=== PATIENT | male | born 1950 | race Hispanic/Latino ===

== ENCOUNTER 2022-12-17 20:55 | Inpatient (IN) | payer BC, OTHER, SELFPAY ==
[2022-12-17] MEDS ORDERED: ONDANSETRON 4 MG (ODT) TAB ONE ×2 (21:12→23:25)
--- NOTE | 2022-12-17 21:36 | RAD REPORT ---
EXAM DESCRIPTION: RAD - Chest Single View - 12/17/2022 9:26 pm CLINICAL HISTORY: COUGH Chest pain. COMPARISON: No comparisons FINDINGS: Portable technique limits examination quality. The lungs are grossly clear. The heart is normal in size. No displaced fractures. IMPRESSION: No acute intrathoracic process suspected.
[2022-12-17] MEDS ORDERED: NA CHLORIDE 0.9% 1,000 ML ONE ×2 (21:40→22:56)
[2022-12-17] MEDS ORDERED: ONDANSETRON 4 MG/2 ML VIAL ONE (21:40)
[2022-12-17 22:04] LABS: Urine Blood Trace-lysed (Negative); Urine Glucose 2+ (Negative); Urine Protein 2+ (Negative); Urine Specific Gravity 1.025 (1.005-1.030)
[2022-12-17] MEDS ORDERED: CEFTRIAXONE 1000 MG/VIAL ONE (22:56)
[2022-12-17 22:59] LABS: Absolute Lymphocytes (CBC) 0.8 K/uL (0.7-4.9); Hematocrit 41.1 % (39.6-49.0); Lymphocytes % 5.8 % (15.3-44.8); MCV 89.6 fL (80-100); MPV 8.1 fL (7.6-11.3); RBC Red Blood Cell Count 4.58 M/uL (4.33-5.43)
[2022-12-17 23:21] LABS: Albumin 3.7 g/dL (3.4-5.0); Bilirubin Direct 0.2 mg/dL (0-0.2); Bilirubin Total 0.8 mg/dL (0.2-1.0); Magnesium 1.9 mg/dL (1.6-2.4); Protein, Total 7.5 g/dL (6.4-8.2)
[2022-12-17 23:33] LABS: SARS-COV-2 RT PCR NEGATIVE (NEGATIVE)
--- NOTE | 2022-12-18 00:09 | ER ---
Nurse's Notes [facility] Name: Huseyin Benitez Age: 72 yrs Sex: Male : 1950 Arrival Date: 12/17/2022 Time: 20:55 Bed 15 Private MD: Diagnosis: Type 2 diabetes mellitus with hyperglycemia;Dehydration;Vomiting;Elevated white blood cell count;Weakness;Paroxysmal atrial fibrillation-NEW ONSET Presentation: 12/17 21:12 Chief complaint: Patient states: "I went to the clinic today and they said my sugar was vc1 325 I ran out of my Ozempic 3 days ago and haven't been able to get it. I'm throwing up, got the shakes, and my head hurts.". Coronavirus screen: Vaccine status: Patient reports receiving the 2nd dose of the covid vaccine. Plus boosters; Moderna Client denies travel out of the [place] in the last 14 days. chills, headache, shortness of breath, Client presents with at least one sign or symptom that may indicate coronavirus-19. Standard/surgical mask placed on the client. Provider contacted for isolation considerations. Ebola Screen: Patient negative for fever greater than or equal to 101.5 degrees Fahrenheit, and additional compatible Ebola Virus Disease symptoms Patient denies exposure to infectious person. Patient denies travel to an Ebola-affected area in the 21 days before illness onset. No symptoms or risks identified at this time. Initial Sepsis Screen: Does the patient meet any 2 criteria? No. Patient's initial sepsis screen is negative. Does the patient have a suspected source of infection? No. Patient's initial sepsis screen is negative. Risk Assessment: Do you want to hurt yourself or someone else? Patient reports no desire to harm self or others. Onset of symptoms was December 17, 2022. 21:12 Method Of Arrival: Ambulatory vc1 21:12 Acuity: KANE 3 vc1 Triage Assessment: 21:18 General: Appears in no apparent distress. uncomfortable, ill, Behavior is calm, vc1 cooperative, appropriate for age. Pain: Complains of pain in headache. EENT: No deficits noted. Neuro: Level of Consciousness is awake, alert, obeys commands, Oriented to person, place, time, situation, Appropriate for age Weakness Reports headache weakness. Cardiovascular: No deficits noted. Respiratory: Reports shortness of breath at rest Airway is patent Respiratory effort is even, unlabored, Respiratory pattern is regular, symmetrical, the patient has mild shortness of breath. GI: Abdomen is flat, non-distended, Pt is actively vomiting undigested food, Reports nausea, vomiting. : No deficits noted. No signs and/or symptoms were reported regarding the genitourinary system. Derm: No deficits noted. No signs and/or symptoms reported regarding the dermatologic system. Musculoskeletal: No deficits noted. No signs and/or symptoms reported regarding the musculoskeletal system. Historical: - Allergies: 21:16 No Known Allergies; vc1 - Home Meds: 21:16 Ozempic subcutaneous [Active]; Glipizide Oral [Active]; Metformin Oral [Active]; vc1 - PMHx: 21:16 Diabetes mellitus; Cerebrovascular accident; 10 years ago (2012); vc1 - PSHx: 21:16 None; vc1 - Immunization history:: Client reports receiving the 2nd dose of the Covid vaccine. - Social history:: Smoking status: Patient denies any tobacco usage or history of. Screenin:18 [facility] ED Fall Risk Assessment (Adult) History of falling in the last 3 months, vc1 including since admission No falls in past 3 months (0 pts) Confusion or Disorientation No (0 pts) Intoxicated or Sedated No (0 pts) Impaired Gait No (0 pts) Mobility Assist Device Used No (0 pt) Altered Elimination No (0 pt) Score/Fall Risk Level 0 - 2 = Low Risk Oriented to surroundings, Maintained a safe environment, Educated pt \\T\\ family on fall prevention, incl call for assistance when getting out of bed. Abuse screen: Denies threats or abuse. Nutritional screening: No deficits noted. Tuberculosis screening: No symptoms or risk factors identified. Assessment: 21:33 General: Appears in no apparent distress. uncomfortable, Behavior is calm, cooperative. lg3 Pain: Complains of pain in head. Neuro: No deficits noted. Diaz Agitation-Sedation Scale (RASS): 0 - Alert and Calm Level of Consciousness is awake, alert, obeys commands, Oriented to person, place, time, situation. Cardiovascular: No deficits noted. Denies chest pain, shortness of breath, Capillary refill < 3 seconds Clubbing of nail beds is absent JVD is absent Patient's skin is warm and dry. Respiratory: No deficits noted. Airway is patent Trachea midline Respiratory effort is even, unlabored, Respiratory pattern is regular, symmetrical, Denies shortness of breath. GI: Abdomen is round non-distended, Pt is actively vomiting clear fluid, Reports nausea, vomiting. : No deficits noted. No signs and/or symptoms were reported regarding the genitourinary system. EENT: No deficits noted. No signs and/or symptoms were reported regarding the EENT system. Derm: No deficits noted. No signs and/or symptoms reported regarding the dermatologic system. Skin is intact, is healthy with good turgor, Skin is dry, Skin is normal. Musculoskeletal: No deficits noted. No signs and/or symptoms reported regarding the musculoskeletal system. Circulation, motion, and sensation intact. Range of motion: intact in all extremities. 23:21 General: Appears in no apparent distress. comfortable, Behavior is calm, cooperative. lg3 Pain: Denies pain. Neuro: No deficits noted. Diaz Agitation-Sedation Scale (RASS): 0 - Alert and Calm Level of Consciousness is awake, alert, obeys commands, Oriented to person, place, time, situation. Cardiovascular: Denies chest pain, shortness of breath. Respiratory: No deficits noted. Airway is patent Respiratory effort is even, unlabored, Respiratory pattern is regular, symmetrical. GI: Reports nausea. Derm: No deficits noted. Skin is intact, is healthy with good turgor, Skin is dry, Skin is normal. Musculoskeletal: No deficits noted. Circulation, motion, and sensation intact. Range of motion: intact in all extremities. 12/18 01:42 Reassessment: Patient appears in no apparent distress at this time. No changes from lg3 previously documented assessment. Patient and/or family updated on plan of care and expected duration. Pain level reassessed. Patient is alert, oriented x 3, equal unlabored respirations, skin warm/dry/pink. Patient states feeling better. Vital Signs: 12/17 21:12 BP 182 / 95; Pulse 89; Resp 20; Temp 98; Pulse Ox 100% ; Weight 81.65 kg; Height 5 ft. vc1 6 in. (167.64 cm); Pain 5/10; 23:21 BP 147 / 73; Pulse 89; Resp 18; Pulse Ox 100% on R/A; lg3 12/18 00:32 BP 140 / 81; Pulse 84; Pulse Ox 98% ; lg3 00:59 BP 137 / 81; Pulse 101; Pulse Ox 99% on R/A; lg3 12/17 21:12 Body Mass Index 29.05 (81.65 kg, 167.64 cm) vc1 ED Course: 12/17 20:55 Patient arrived in ED. rg4 21:10 Angelina Andrade, RN is Primary Nurse. lg3 21:12 Rodney Kemp MD is Attending Physician. jose 21:16 Triage completed. vc1 21:18 Arm band placed on right wrist. vc1 21:20 Patient has correct armband on for positive identification. Placed in gown. Bed in low vc1 position. Client placed on continuous cardiac and pulse oximetry monitoring. NIBP monitoring applied. 21:28 XRAY Chest (1 view) In Process Unspecified. EDMS 21:33 Door closed. Noise minimized. Warm blanket given. lg3 22:03 Urine Culture Sent. lg3 22:27 Inserted saline lock: 20 gauge in left EJ, using aseptic technique. Blood collected. lg3 22:42 Lactate w/ 2H reflex if indic. Sent. ha1 22:42 Blood Culture Adult (2) Sent. ha1 22:42 Basic Metabolic Panel Sent. ha1 22:42 CBC with Diff Sent. ha1 22:42 LFT's Sent. ha1 22:42 Magnesium Sent. ha1 22:50 Troponin HS Sent. lg3 22:50 NT PRO-BNP Sent. lg3 22:50 COVID-19/FLU A+B Sent. lg3 12/18 00:06 Ricardo Shipley MD is Hospitalizing Provider. jose 00:51 UDS Sent. lg3 01:41 No provider procedures requiring assistance completed. Patient admitted, IV remains in lg3 place. intact, No redness/swelling at site. Administered Medications: 12/17 21:11 Drug: Ondansetron 4 mg Route: PO; lg3 23:20 Follow up: Response: No adverse reaction; No change in condition lg3 23:20 Drug: NS 0.9% 1000 ml Route: IV; Rate: 1 bolus; Site: left jugular; lg3 12/18 01:42 Follow up: IV Status: Completed infusion; IV Intake: 1000ml 3 12/17 23:20 Drug: Zofran (Ondansetron) 4 mg Route: IVP; Site: left jugular; lg3 12/18 00:53 Follow up: Response: No adverse reaction; Marked relief of symptoms lg3 12/17 23:20 Drug: NS 0.9% 1000 ml Route: IV; Rate: 1 bolus; Site: left jugular; lg3 12/18 01:29 Follow up: Response: No adverse reaction; IV Status: Completed infusion; IV Intake: lg3 1000ml 12/17 23:20 Drug: Rocephin (cefTRIAXone) 1 grams Route: IV; Rate: per protocol; Site: left jugular; lg3 12/18 01:28 Follow up: Response: No adverse reaction; IV Status: Completed infusion; IV Intake: [id number] 00:52 Drug: Lopressor (metoprolol TARTRATE) 50 mg Route: PO; lg3 00:59 Follow up: Response: No adverse reaction lg3 00:52 Drug: Lopressor (metoprolol) 5 mg Route: IVP; Site: left jugular; lg3 00:58 Follow up: Response: No adverse reaction lg3 00:52 Drug: Digoxin 0.5 mg Route: IVP; Site: left jugular; lg3 00:58 Follow up: Response: No adverse reaction lg3 01:28 Drug: Lovenox (enoxaparin) 1 mg/kg Route: Sub-Q; Site: right lower abdomen; lg3 01:29 Follow up: Response: No adverse reaction lg3 01:40 Not Given (Patient Refused): Phenergan (promethazine) 12.5 mg IVP once lg3 Medication: 12/17 21:20 VIS not applicable for this client. vc1 Intake: 12/18 01:28 IV: 10ml; Total: 10ml. lg3 01:29 IV: 1000ml; Total: 1010ml. lg3 01:42 IV: 1000ml; Total: 2010ml. lg3 Outcome: 00:07 Decision to Hospitalize by Provider. jose 01:41 Admitted to Med/surg accompanied by tech, via wheelchair, room 232, Report called to lg3 Mena 01:41 Condition: stable 01:41 Instructed on the need for admit, Demonstrated understanding of instructions. 01:53 Patient left the ED. lg3 Signatures: Dispatcher [employer] EDRodney Massey MD MD cha Garcia, Rubi rg4 Angelina Andrade, CHANDA RN lg3 Cheryl Huffman RN RN vc1 Amanda Jane, RN RN ha1 Corrections: (The following items were deleted from the chart) 12/17 23:21 21:33 General: Appears in no apparent distress. comfortable, Behavior is calm, lg3 cooperative, lg3
--- NOTE | 2022-12-18 00:09 | EDPHYS ---
Physician Documentation [facility] Name: Huseyin Benitez Age: 72 yrs Sex: Male : 1950 Arrival Date: 12/17/2022 Time: 20:55 Bed 15 Private MD: ED Physician Rodney Kemp HPI: 12/17 22:29 This 72 yrs old Male presents to ER via Ambulatory with complaints of High jose Blood Sugar. 22:29 The patient or guardian reports hyperglycemia, that was potentially precipitated by no jose particular event. Onset: The symptoms/episode began/occurred 2 day(s) ago. Associated signs and symptoms: Pertinent positives:. Current symptoms: In the emergency department the patient's symptoms have worsened, moderately. Historical: - Allergies: 21:16 No Known Allergies; vc1 - Home Meds: 21:16 Ozempic subcutaneous [Active]; Glipizide Oral [Active]; Metformin Oral [Active]; vc1 - PMHx: 21:16 Diabetes mellitus; Cerebrovascular accident; 10 years ago (2012); vc1 - PSHx: 21:16 None; vc1 - Immunization history:: Client reports receiving the 2nd dose of the Covid vaccine. - Social history:: Smoking status: Patient denies any tobacco usage or history of. ROS: 22:33 Eyes: Negative for injury, pain, redness, and discharge, ENT: Negative for injury, jose pain, and discharge, Neck: Negative for injury, pain, and swelling, Cardiovascular: Negative for chest pain, palpitations, and edema, Abdomen/GI: Negative for abdominal pain, nausea, vomiting, diarrhea, and constipation, Back: Negative for injury and pain, : Negative for injury, bleeding, discharge, and swelling, MS/Extremity: Negative for injury and deformity, Skin: Negative for injury, rash, and discoloration, Neuro: Negative for headache, weakness, numbness, tingling, and seizure, Psych: Negative for depression, anxiety, suicide ideation, homicidal ideation, and hallucinations, Allergy/Immunology: Negative for hives, rash, and allergies, Hematologic/Lymphatic: Negative for swollen nodes, abnormal bleeding, and unusual bruising. 22:33 Constitutional: Positive for chills, malaise, poor PO intake. 22:33 Abdomen/GI: Positive for nausea and vomiting. 22:33 Neuro: Positive for dizziness, tremor, weakness. Exam: 22:33 Head/Face: Normocephalic, atraumatic. Eyes: Pupils equal round and reactive to light, jose extra-ocular motions intact. Lids and lashes normal. Conjunctiva and sclera are non-icteric and not injected. Cornea within normal limits. Periorbital areas with no swelling, redness, or edema. ENT: Nares patent. No nasal discharge, no septal abnormalities noted. Tympanic membranes are normal and external auditory canals are clear. Oropharynx with no redness, swelling, or masses, exudates, or evidence of obstruction, uvula midline. Mucous membranes moist. Neck: Trachea midline, no thyromegaly or masses palpated, and no cervical lymphadenopathy. Supple, full range of motion without nuchal rigidity, or vertebral point tenderness. No Meningismus. Chest/axilla: Normal chest wall appearance and motion. Nontender with no deformity. No lesions are appreciated. Cardiovascular: Regular rate and rhythm with a normal S1 and S2. No gallops, murmurs, or rubs. Normal PMI, no JVD. No pulse deficits. Respiratory: Lungs have equal breath sounds bilaterally, clear to auscultation and percussion. No rales, rhonchi or wheezes noted. No increased work of breathing, no retractions or nasal flaring. Back: No spinal tenderness. No costovertebral tenderness. Full range of motion. Male : Normal genitalia with no discharge or lesions. Skin: Warm, dry with normal turgor. Normal color with no rashes, no lesions, and no evidence of cellulitis. MS/ Extremity: Pulses equal, no cyanosis. Neurovascular intact. Full, normal range of motion. Neuro: Awake and alert, GCS 15, oriented to person, place, time, and situation. Cranial nerves II-XII grossly intact. Motor strength 5/5 in all extremities. Sensory grossly intact. Cerebellar exam normal. Normal gait. Psych: Awake, alert, with orientation to person, place and time. Behavior, mood, and affect are within normal limits. 22:33 ECG was reviewed by the Attending Physician. 22:33 Abdomen/GI: Inspection: abdomen appears normal, Bowel sounds: normal, Palpation: abdomen is soft and non-tender, in all quadrants, Liver: no appreciated palpable abnormalities, Hernia: not appreciated. Vital Signs: 21:12 BP 182 / 95; Pulse 89; Resp 20; Temp 98; Pulse Ox 100% ; Weight 81.65 kg; Height 5 ft. vc1 6 in. (167.64 cm); Pain 5/10; 23:21 BP 147 / 73; Pulse 89; Resp 18; Pulse Ox 100% on R/A; lg3 12/18 00:32 BP 140 / 81; Pulse 84; Pulse Ox 98% ; lg3 00:59 BP 137 / 81; Pulse 101; Pulse Ox 99% on R/A; lg3 12/17 21:12 Body Mass Index 29.05 (81.65 kg, 167.64 cm) vc1 Procedures: 12/17 23:19 Peripheral line: by aseptic technique a peripheral line was placed in the left external jose jugular vein. MDM: 21:12 Patient medically screened. jose 22:39 Differential diagnosis: DKA. Differential Diagnosis sepsis, flu. Data reviewed: vital jose signs, nurses notes, lab test result(s), EKG, radiologic studies, plain films. Consideration of Admission/Observation Patient was admitted/placed on observation. I considered the following discharge prescriptions or medication management in the emergency department Medications were administered in the Emergency Department. See MAR. Test considered but Not performed: Ultrasound usg abd not done. Care significantly affected by the following chronic conditions: Diabetes, cva. 12/17 21:15 Order name: Basic Metabolic Panel; Complete Time: 23:53 [facility] 12/17 21:15 Order name: CBC with Diff; Complete Time: 23:07 [facility] 12/17 21:15 Order name: LFT's; Complete Time: 23:53 [facility] 12/17 21:15 Order name: Magnesium; Complete Time: 23:53 [facility] 12/17 21:15 Order name: NT PRO-BNP; Complete Time: 23:53 [facility] 12/17 21:15 Order name: Troponin HS; Complete Time: 23:53 [facility] 12/17 21:15 Order name: Urine Culture [facility] 12/17 21:15 Order name: Lipase; Complete Time: 23:53 [facility] 12/17 21:17 Order name: Glucose, Ancillary Testing; Complete Time: 22:12 EDNM 12/17 22:04 Order name: Urine Dipstick-Ancillary; Complete Time: 22:12 EDNM 12/17 22:27 Order name: Blood Culture Adult (2) [facility] 12/17 22:27 Order name: Lactate w/ 2H reflex if indic.; Complete Time: 23:53 [facility] 12/17 22:27 Order name: COVID-19/FLU A+B; Complete Time: 23:53 [facility] 12/18 00:32 Order name: TSH [facility] 12/17 21:15 Order name: XRAY Chest (1 view); Complete Time: 22:12 [facility] 12/17 21:15 Order name: EKG; Complete Time: 21:16 [facility] 12/17 21:15 Order name: Cardiac monitoring; Complete Time: 21:24 [facility] 12/18 00:32 Order name: EKG; Complete Time: 00:32 [facility] 12/18 00:38 Order name: UDS la1 12/18 00:39 Order name: CT Abd/Pelvis - Without Contrast [facility] 12/17 21:15 Order name: EKG - Nurse/Tech; Complete Time: 21:41 [facility] 12/17 21:15 Order name: IV Saline Lock; Complete Time: 22:27 [facility] 12/17 21:15 Order name: Labs collected and sent; Complete Time: 22:42 [facility] 12/17 21:15 Order name: O2 Per Protocol; Complete Time: 21:24 [facility] 12/17 21:15 Order name: O2 Sat Monitoring; Complete Time: 21:24 [facility] 12/17 21:15 Order name: Urine Dipstick-Ancillary (obtain specimen); Complete Time: 22:03 [facility] 12/18 00:32 Order name: EKG - Nurse/Tech; Complete Time: 00:37 [facility] EC:33 Rate is 90 beats/min. Rhythm is regular. QRS [place] is Normal. [place] interval is normal. T jose waves are Normal. Clinical impression: NSR w/ Non-specific ST/T Changes and No evidence of ischemia. Interpreted by me. Reviewed by me. Administered Medications: 21:11 Drug: Ondansetron 4 mg Route: PO; 3 23:20 Follow up: Response: No adverse reaction; No change in condition 3 23:20 Drug: NS 0.9% 1000 ml Route: IV; Rate: 1 bolus; Site: left jugular; 3 12/18 01:42 Follow up: IV Status: Completed infusion; IV Intake: 1000ml [facility] 12/17 23:20 Drug: Zofran (Ondansetron) 4 mg Route: IVP; Site: left jugular; 3 12/18 00:53 Follow up: Response: No adverse reaction; Marked relief of symptoms lg3 12/17 23:20 Drug: NS 0.9% 1000 ml Route: IV; Rate: 1 bolus; Site: left jugular; lg3 12/18 01:29 Follow up: Response: No adverse reaction; IV Status: Completed infusion; IV Intake: lg3 1000ml 12/17 23:20 Drug: Rocephin (cefTRIAXone) 1 grams Route: IV; Rate: per protocol; Site: left jugular; lg3 12/18 01:28 Follow up: Response: No adverse reaction; IV Status: Completed infusion; IV Intake: [id number] 00:52 Drug: Lopressor (metoprolol TARTRATE) 50 mg Route: PO; lg3 00:59 Follow up: Response: No adverse reaction lg3 00:52 Drug: Lopressor (metoprolol) 5 mg Route: IVP; Site: left jugular; lg3 00:58 Follow up: Response: No adverse reaction lg3 00:52 Drug: Digoxin 0.5 mg Route: IVP; Site: left jugular; lg3 00:58 Follow up: Response: No adverse reaction lg3 01:28 Drug: Lovenox (enoxaparin) 1 mg/kg Route: Sub-Q; Site: right lower abdomen; lg3 01:29 Follow up: Response: No adverse reaction lg3 01:40 Not Given (Patient Refused): Phenergan (promethazine) 12.5 mg IVP once lg3 Disposition Summary: 12/18/22 00:07 Hospitalization Ordered Hospitalization Status: Observation jose Provider: Ricardo Shipley cha Location: Telemetry/MedSur (Inpatient) jose Condition: Stable jose Problem: new jose Symptoms: have improved jose Bed/Room Type: Standard jose Room Assignment: 232(12/18/22 00:52) cg Diagnosis - Type 2 diabetes mellitus with hyperglycemia jose - Dehydration jose - Vomiting jose - Elevated white blood cell count jose - Weakness jose - Paroxysmal atrial fibrillation - NEW ONSET jose Forms: - Medication Reconciliation Form jose - SBAR form jose Signatures: Dispatcher [employer] EDRodney Massey MD MD cha Garcia, Cindy, RN RN Angelina Waldron RN RN lg3 Cheryl Huffman RN RN vc1 Corrections: (The following items were deleted from the chart) 00:52 00:07 jose cg
[2022-12-18] MEDS ORDERED: METOPROLOL TAR 50 MG TAB ONE (00:38)
[2022-12-18] MEDS ORDERED: METOPROLOL TARTRATE 5 MG/5 ML INJ IV ONE (00:39)
[2022-12-18] MEDS ORDERED: DIGOXIN 0.25 MG/ML AMP ONE (00:39)
[2022-12-18] MEDS ORDERED: ENOXAPARIN 80 MG/0.8 ML SQ ONE (00:40)
--- NOTE | 2022-12-18 00:49 | P.HP ---
Certification for Inpatient Patient admitted to: Observation With expected LOS: <2 Midnights Patient will require the following post-hospital care: None Practitioner: I am a practitioner with admitting privileges, knowledge of patient current condition, hospital course, and medical plan of care. Services: Services provided to patient in accordance with Admission requirements found in Title 42 Section 412.3 of the Code of Federal Regulations <Robin Alanis Jesi Marcial - Last Filed: 12/18/22 00:45> Patient History Date of Service: 12/18/22 Reason for admission: New onset A. 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 He reports he has been out of his medications for the last 3 days. He was evaluated in the emergency department his labs were significant for mild leukocytosis with white blood cell count of 14.5 high-sensitivity opponent of 88.0 glucose 247 BNP 390 chest x-ray was negative for acute findings initial EKG showed normal sinus rhythm but during his evaluation he developed A. fib RVR with a rate up to 145, no known history of atrial fibrillation, he was given metoprolol, Lovenox in ED. Will admit for further evaluation and management of new onset A. fib with RVR. - Past Medical/Surgical History -: Pij-vxtiquw-byrvkoucm diabetes -: CVA 2013right-sided paresthesias -: Carpal tunnel surgery Psychosocial/ Personal History: Patient lives alone, is currently unemployed. - Family History Family History: Reviewed- Non-Contributory - Social History Smoking Status: Never smoker Alcohol use: No CD- Drugs: No Caffeine use: Yes Place of Residence: Home <ZekeRobin - Last Filed: 12/18/22 00:45> Date of Service: 12/18/22 <Ricardo Shipley - Last Filed: 12/18/22 18:56> Review of Systems 10-point ROS is otherwise unremarkable Gastrointestinal: Nausea, Vomiting <Robin Alanis - Last Filed: 12/18/22 00:45> Physical Examination - Physical Exam General: Alert, In no apparent distress, Oriented x3 HEENT: Atraumatic, PERRLA, Mucous membr. moist/pink, EOMI, Sclerae nonicteric Neck: Supple, 2+ carotid pulse no bruit, No LAD, Without JVD or thyroid abnormality Respiratory: Clear to auscultation bilaterally, Normal air movement Cardiovascular: Regular rate/rhythm, Normal S1 S2, Irregular heart rate/rhythm (A. fibRVR) Capillary refill: <2 Seconds Gastrointestinal: Normal bowel sounds, No tenderness Musculoskeletal: No tenderness Integumentary: No rashes Neurological: Normal speech, Normal strength at 5/5 x4 extr, Normal tone, Normal affect - Studies Laboratory Data (last 24 hrs) 12/17/22 22:23: WBC 14.50 H, Hgb 13.9, Hct 41.1, Plt Count 223 12/17/22 22:23: Sodium 135 L, Potassium 4.0, BUN 21 H, Creatinine 1.25, Glucose 276 H, Magnesium 1.9, Total Bilirubin 0.8, AST 7 L, ALT 17, Alkaline Phosphatase 66, Lipase 164 <Robin Alanis - Last Filed: 12/18/22 00:45> - Studies Laboratory Data (last 24 hrs) 12/18/22 05:12: WBC 15.00 H, Hgb 12.9 L, Hct 39.0 L, Plt Count 221 12/18/22 05:12: Sodium 138, Potassium 3.8, BUN 16, Creatinine 1.12, Glucose 225 H, Magnesium 1.9, Total Bilirubin 0.7, AST 6 L, ALT 13 L, Alkaline Phosphatase 59, Triglycerides 94, Cholesterol 178, HDL Cholesterol 43, Cholesterol/HDL Ratio 4.14 12/17/22 22:23: WBC 14.50 H, Hgb 13.9, Hct 41.1, Plt Count 223 12/17/22 22:23: Sodium 135 L, Potassium 4.0, BUN 21 H, Creatinine 1.25, Glucose 276 H, Magnesium 1.9, Total Bilirubin 0.8, AST 7 L, ALT 17, Alkaline Phosphatase 66, Lipase 164 <Ricardo Shipley - Last Filed: 12/18/22 18:56> Assessment and Plan - Plan Assessment: New onset Bailey weber with RVR Diabetes mellitus type 0dah-wlkntrj-vnuvxaxjm with hyperglycemia History of CVA with right-sided paresthesias Plan: New onset Bailey weber with RVR: [id number] score is 4 given his age, stroke history, diabetes history. Continue therapeutic Lovenox, beta-blockers. Cardiology consult and echocardiogram ordered. Mild elevation in troponin, will trend. TSH ordered. Diabetes mellitus type 0soq-gudogsc-eeezolamk with hyperglycemia: Mild sliding scale insulin, A1c in the morning. Patient will need prescription for his home medications at discharge. History of CVA with right-sided paresthesias: At baseline. No new neurological complaint. DVT PPX: Therapeutic Lovenox Code status: Full Discharge Plan: Home Plan to discharge in: 24 Hours - Advance Directives Does patient have a Living Will: No Does patient have a Durable POA for Healthcare: No - Code Status/Comfort Care Code Status Assessed: Yes (Full code) Critical Care: No Time Spent Managing Pts Care (In Minutes): 55 <Robin Alanis - Last Filed: 12/18/22 00:45> Physician Review: Patient Assessed, Agree with Above Assessment and Plan <Ricardo Shipley - Last Filed: 12/18/22 18:56>
[2022-12-18] MEDS ORDERED: ONDANSETRON 4 MG/2 ML VIAL IV PRN (01:09)
[2022-12-18 01:18] LABS: Barbiturates NEGATIVE (NEGATIVE); Benzodiazepines NEGATIVE (NEGATIVE); Cocaine NEGATIVE (NEGATIVE); METHAMPHETAM NEGATIVE (NEGATIVE); Methadone NEGATIVE (NEGATIVE); Opiates NEGATIVE (NEGATIVE); Phencyclidine NEGATIVE (NEGATIVE); THC Cannibis NEGATIVE (NEGATIVE)
[2022-12-18] MEDS: Ringers Lactate 1,000 ML IV SCH ×4 (02:03→22:48)
[2022-12-18 02:30] VITALS: BMI 29.0
[2022-12-18] MEDS: PANTOPRAZOLE 40MG TABLET PO SCH (05:04)
[2022-12-18 06:01] LABS: Albumin 3.2 g/dL (3.4-5.0); Bilirubin Total 0.7 mg/dL (0.2-1.0); Magnesium 1.9 mg/dL (1.6-2.4); Potassium 3.8 mmol/L (3.5-5.1); Protein, Total 6.4 g/dL (6.4-8.2)
[2022-12-18 06:06] LABS: Troponin High Sensitivity 92.7 pg/mL (<58.9)
[2022-12-18] MEDS: INSULIN -REGULAR HUMAN 50 UNIT/0.5 ML ML SQ SCH ×4 (07:30→20:36)
[2022-12-18 07:42] LABS: Absolute Lymphocytes (CBC) 1.3 K/uL (0.7-4.9); Lymphocytes % 8.8 % (15.3-44.8); MCV 91.1 fL (80-100); MPV 8.4 fL (7.6-11.3); RBC Red Blood Cell Count 4.28 M/uL (4.33-5.43)
[2022-12-18] MEDS ORDERED: INFLUENZA VACCINE (for 6+ mo) 0.5 ML DOSE IMVAC ONE (08:00)
[2022-12-18] MEDS ORDERED: POTASSIUM CL SA 10 MEQ TAB PO ONE (09:00)
[2022-12-18] MEDS ORDERED: METOPROLOL TAR 50 MG TAB PO SCH (09:00)
[2022-12-18] MEDS ORDERED: ENOXAPARIN 80 MG/0.8 ML SQ SCH (09:00)
[2022-12-18] MEDS: SOTALOL HCL 80 MG TAB PO SCH (17:04)
--- NOTE | 2022-12-18 17:32 | EKG ---
Test Date: 2022-12-17 Test Time: 21:36:02 Medical Orderly: RV MEASUREMENT RESULTS: Intervals: Rate: 90 [place]: 162 QRSD: 88 QT: 394 QTc: 481 [place]: P: 65 [place]: 162 QRS: -89 T: 37 INTERPRETIVE STATEMENTS: Normal sinus rhythm Left axis deviation Inferior infarct, age undetermined Abnormal ECG Compared to ECG 12/17/2022 21:35:31 No significant changes Electronically Signed On 12-18-22 17:30:39 STAFF MECHANICAL ENGINEER by Arben Kim
--- NOTE | 2022-12-18 17:32 | EKG ---
Test Date: 2022-12-17 Test Time: 21:35:31 Oracle Brm Developer: RV MEASUREMENT RESULTS: Intervals: Rate: 86 [place]: 160 QRSD: 88 QT: 394 QTc: 471 [place]: P: 63 [place]: 160 QRS: -86 T: 28 INTERPRETIVE STATEMENTS: Normal sinus rhythm Left axis deviation Inferior infarct, age undetermined Abnormal ECG No previous ECG available for comparison Electronically Signed On 12-18-22 17:30:41 SCHOOL GUARD by Arben Kim
--- NOTE | 2022-12-18 17:32 | EKG ---
Test Date: 2022-12-18 Test Time: 00:34:14 Customer Quality Engineer: RV MEASUREMENT RESULTS: Intervals: Rate: 102 [place]: QRSD: 80 QT: 304 QTc: 396 [place]: P: -85 [place]: QRS: 268 T: 69 INTERPRETIVE STATEMENTS: Atrial flutter with variable AV block with premature ventricular or aberrantly conducted complexes Right superior axis deviation Cannot rule out Inferior infarct, age undetermined Abnormal ECG Compared to ECG 12/17/2022 21:36:02 Ventricular premature complex(es) now present Right superior axis now present Sinus rhythm no longer present Left-axis deviation no longer present Myocardial infarct finding still present Electronically Signed On 12-18-22 17:30:23 PAD MAKING MACHINE OPERATOR by Arben Kim
--- NOTE | 2022-12-18 20:14 | CON ---
Date of Consultation: 12/18/2022 Reason For Consultation: New onset atrial fibrillation. History Of Present Illness: This is a 72-year-old male with history of CVA with right-sided weakness , diabetes, hypertension, and dyslipidemia who presented to the emergency room feeling sick with naus ea and vomiting. He ran out of medications about 3 days ago. In the ER, he apparently developed atr ial fibrillation and apparently he started to be in normal sinus rhythm, then developed atrial fibril lation with rapid ventricular response. The patient was given metoprolol and Lovenox in the emergenc y room. The patient denies having any chest pain or shortness of breath. Past Medical History: Diabetes, CVA, dyslipidemia, and hypertension. Medications: Refer to reconciliation sheet for detailed list. Allergies: NO KNOWN DRUG ALLERGIES. Family History: No premature coronary artery disease or cancer. Social History: He does not smoke or drink. Does not use any drugs. Review of Systems: All systems reviewed and they were negative except as mentioned in HPI. Physical Examination: Vital Signs: Reviewed. His temperature is 98.7, pulse 75, breathing at 16, blood pressure 118/64, a nd saturating 97% on room air. General: A pleasant elderly male, in no apparent distress. Head And Neck: Pupils are equal and reactive to light. Intact eye movements. No JVD. No cervical lymphadenopathy. Neck is supple. Thyroid is not enlarged. Lungs: Clear to auscultation bilaterally. No rhonchi, wheezing, or crackles. No accessory muscle u se. Heart: Irregularly irregular. No extra sounds. Abdomen: Soft, nontender. Bowel sounds positive. No organomegaly. No masses or hernia. Extremities: No edema, clubbing, or cyanosis. Intact pulses. Skin: No rash. Neurologic: Alert, awake, and oriented x3. No acute focal deficits appreciated. Investigations: BUN 16, creatinine 1.2, and blood glucose 232. Troponin 92 and then 101. Assessment/recommendation: 1.Atrial fibrillation with rapid ventricular response, now the rate is controlled. Discontinue meto prolol. Start him on sotalol 80 mg twice a day and EKG to assess the dose and start Eliquis 5 mg twi ce a day and monitor for the next 24 hours. If no changes on EKG after sotalol introduction, then we will plan for discharging him in the afternoon tomorrow. 2.Elevated troponin. No chest pain. The patient has diabetes and multiple risk factors. He will n eed ischemia workup. We will plan for exercise nuclear stress test as an outpatient as well as an ec ho, which can be done as an outpatient as well. 3.Diabetes. Sugars are better controlled. Continue current management. SR/MODL Voice ID: [id number] Report ID: [id number]
[2022-12-18] MEDS: APIXABAN 5 MG TABLET PO SCH (20:36)
--- NOTE | 2022-12-18 20:59 | RAD REPORT ---
EXAM DESCRIPTION: CT - Abdomen Pelvis Wo Contrast - 12/18/2022 6:14 am COMPARISON: None. TECHNIQUE: CT ABDOMEN PELVIS WITHOUT IV CONTRAST on 12/18/2022 12:39 AM K [employer] PRINCIPAL This exam was performed according to our departmental dose-optimization program, which includes autom ated exposure control, adjustment of the mA and/or kV according to patient size and/or use of iterati ve reconstruction technique. FINDINGS: There is minimal right basilar atelectasis. There is a left lower lobe pulmonary nodule me asuring 6 mm. There is mild thickening of the distal esophagus. Abdomen: The liver is normal in appearance. There is no biliary dilatation. Gallbladder is normal in appearance. Stomach is distended with fluid and food material. The pancreas and spleen are normal in appearance. Adrenal glands are normal. Kidneys are mildly atrophic. Abdominal aorta is normal in course and caliber without aneurysm. There is no free air. There is no r etroperitoneal adenopathy. Pelvis: There is no bowel obstruction. Urinary bladder is unremarkable. There is no free fluid. Appen nayana is normal. Skeleton: There are no acute osseous findings. No suspicious bony lesions. IMPRESSION: Mild thickening of distal esophagus. 6 mm left solid pulmonary nodule. Recommend a non-contrast Chest CT at 6-12 months. If patient is hig h risk for malignancy, recommend an additional non-contrast Chest CT at 18-24 months; if patient is l ow risk for malignancy a non-contrast Chest CT at 18-24 months is optional. These guidelines do not apply to immunocompromised patients and patients with cancer. Follow up in pa tients with significant comorbidities as clinically warranted. For lung cancer screening, adhere to L rojas-RADS guidelines. Reference: Radiology. 2017; 284(1):228-43. Electronically signed by: Jayesh Santacruz MD 12/18/2022 1:57 AM K [employer] Due to temporary technical issues with the PACS/Fluency reporting system, reports are being signed by the in house radiologists without review as a courtesy to insure prompt reporting. The interpreting radiologist is fully responsible for the content of the report.
[2022-12-18] MEDS ORDERED: ATORVASTATIN 40 MG TAB PO SCH (21:00)
[2022-12-19 05:47] LABS: Absolute Lymphocytes (CBC) 1.9 K/uL (0.7-4.9); Hematocrit 37.6 % (39.6-49.0); Lymphocytes % 18.2 % (15.3-44.8); MCV 89.5 fL (80-100); MPV 8.2 fL (7.6-11.3)
[2022-12-19 06:00] LABS: Magnesium 1.8 mg/dL (1.6-2.4); Potassium 3.7 mmol/L (3.5-5.1)
[2022-12-19] MEDS: PANTOPRAZOLE 40MG TABLET PO SCH (06:05)
[2022-12-19] MEDS: SOTALOL HCL 80 MG TAB PO SCH (06:05)
[2022-12-19] MEDS ORDERED: MAGNESIUM SULFATE 1 gm IVPB 1 GM/100 ML BAG IV ONE (06:13)
[2022-12-19] MEDS: INSULIN -REGULAR HUMAN 50 UNIT/0.5 ML ML SQ SCH ×2 (07:30→11:40)
[2022-12-19 08:38] VITALS: O2SAT 95
[2022-12-19] MEDS: APIXABAN 5 MG TABLET PO SCH (08:54)
[2022-12-19] MEDS ORDERED: POTASSIUM CL SA 10 MEQ TAB PO ONE (09:00)
[2022-12-19 12:18] VITALS: BP 158/87; TEMP 97.9
--- NOTE | 2022-12-19 15:15 | P.DS ---
Admission Date: 12/18/22 Discharge Date: 12/19/22 Disposition: ROUTINE DISCHARGE Discharge Condition: GOOD Reason for Admission: New onset A. fib Consultations: 1. Cardiology Hospital Course: DIAGNOSES: # Paroxysmal Atrial Fibrillation with Rapid Ventricular Response # Type II Non-ST Segment Elevation Myocardial Infarction (Demand Ischemia) secondary to above # Hyperglycemia in Type II Diabetes Mellitus # Reactive Leukocytosis secondary to Nausea/Vomiting (resolved) # History of Prior Cerebrovascular Accident with Residual Right-Sided Deficits # Left Lower Lobe Pulmonary Nodule (6 mm) # Mild Distal Esophageal Thickening # Microscopic Hematuria HOSPITAL COURSE: Mr. Huseyin Benitez is a pleasant 72 year old male with a past medical history significant for prior cerebrovascular accident with residual right-sided deficits and type II diabetes mellitus who was admitted to the [facility] on 12/18/2022 for nausea/vomiting. He was admitted to Medicine service for further evaluation. Upon presentation, his EKG revealed normal sinus rhythm, but he converted into atrial fibrillation with rapid ventricular response in the Emergency Department. His troponin trend was 103.9 -> 101.7 -> 92.7 -> 88.0. His chest x-ray revealed, "no acute intrathoracic process suspected." His CT abdomen/pelvis revealed, "mild thickening of distal esophagus. 6 mm left solid pulmonary nodule." Cardiology was consulted and he was evaluated by Dr. Kim. It was recommended that he be started on sotalol and apixaban. He was monitored overnight and he converted back into normal sinus rhythm. Today, he states that he feels well and would like to be discharged home. Dr. Kim has cleared him for discharge home with an outpatient cardiac stress test. Of note, he was incidentally noted to have several findings. Firstly, he was noted to have a 6 mm left lower lobe pulmonary nodule. He was advised to follow- up with Dr. Mercado for further surveillance and evaluation. Secondly, he was found to have mild distal esophageal thickening, for which he was advised to follow-up with Dr. Stern for possible esophagogastroduodenoscopy to exclude gastroesophageal cancer. Thirdly, he was noted to have microscopic hematuria, for which he was advised to follow-up with his PCP for evaluation of an underlying urologic malignancy. On 12/21/2022, he was seen on rounds and deemed medically stable for discharge. He was discharged with instructions to schedule follow-up appointments with his PCP, with Cardiology (Dr. Kim), with Pulmonary Medicine (Dr. Mercado), and with Gastroenterology (Dr. Stern). He was provided prescriptions for atorvastatin, sotalol, and apixaban. He was given the opportunity to ask questions and reported no further questions. Furthermore, all questions were answered to the best of my ability. A copy of this discharge summary will be sent to the above providers to facilitate continuity of care. Today, I personally spent 35 minutes on his case, of which greater than 50% of the time was spent in patient education, counseling, and coordination of care as described above. Vital Signs/Physical Exam: Temp Pulse Resp BP Pulse Ox 97.9 F 71 16 158/87 H 100 12/19/22 12:00 12/19/22 12:00 12/19/22 12:00 12/19/22 12:00 12/19/22 12:00 General: Alert, In no apparent distress, Oriented x3 HEENT: Atraumatic, Mucous membr. moist/pink, EOMI, Sclerae nonicteric Neck: JVD not distended Respiratory: Clear to auscultation bilaterally, Normal air movement Cardiovascular: No edema, Regular rate/rhythm, Normal S1 S2, No gallops, No rubs, No murmurs Gastrointestinal: Normal bowel sounds, Soft and benign, Non-distended, No tenderness, No rebound, No guarding Musculoskeletal: No clubbing Integumentary: No rashes Neurological: Normal speech, Normal affect Laboratory Data at Discharge: WBC 10.50 K/uL (4.3-10.9) 12/19/22 04:58 Hgb 12.8 g/dL (13.6-17.9) L 12/19/22 04:58 Hct 37.6 % (39.6-49.0) L 12/19/22 04:58 Plt Count 191 K/uL (152-406) 12/19/22 04:58 Sodium 137 mmol/L (136-145) 12/19/22 04:58 Potassium 3.7 mmol/L (3.5-5.1) 12/19/22 04:58 BUN 13 mg/dL (7-18) 12/19/22 04:58 Creatinine 1.03 mg/dL (0.70-1.30) 12/19/22 04:58 Glucose 170 mg/dL (74-106) H 12/19/22 04:58 Magnesium 1.8 mg/dL (1.6-2.4) 12/19/22 04:58 Total Bilirubin 0.7 mg/dL (0.2-1.0) 12/18/22 05:12 AST 6 U/L (15-37) L 12/18/22 05:12 ALT 13 U/L (16-61) L 12/18/22 05:12 Alkaline Phosphatase 59 U/L (45-117) 12/18/22 05:12 Triglycerides 94 mg/dL (<150) 12/18/22 05:12 Cholesterol 178 mg/dL (<200) 12/18/22 05:12 HDL Cholesterol 43 mg/dL (40-60) 12/18/22 05:12 Cholesterol/HDL Ratio 4.14 12/18/22 05:12 Lipase 164 U/L (73-393) 12/17/22 22:23 Home Medications: Apixaban [Eliquis] 5 mg PO BID #60 tab 12/19/22 Aspirin [Aspirin EC 81 MG] 81 mg PO DAILY #1 12/19/22 Atorvastatin Calcium [Lipitor] 40 mg PO BEDTIME #30 tab 12/19/22 Sotalol HCl [Betapace*] 80 mg PO BID 6AM 6PM #60 tab 12/19/22 New Medications: Aspirin [Aspirin EC 81 MG] 81 mg PO DAILY #1 Sotalol HCl [Betapace*] 80 mg PO BID 6AM 6PM #60 tab Apixaban [Eliquis] 5 mg PO BID #60 tab Atorvastatin Calcium [Lipitor] 40 mg PO BEDTIME #30 tab Physician Discharge Instructions: 1. Please call and schedule follow-up appointment with your PCP in 3-5 days - On your urinalysis, there was a small amount of blood. This can be an early sign of cancer. Please discuss this with your PCP for further evaluation. 2. Please call and schedule follow-up appointment with Cardiology (Dr. Kim) in 5-7 days - At this appointment, he will schedule you for an outpatient cardiac stress test 3. Please call and schedule follow-up appointment with Gastroenterology (Dr. Stern) in 5-7 days - You will need to discuss getting an upper endoscopy due to the thickening seen on your esophagus during the CAT scan. This can be an early sign of cancer or severe reflux disease. 4. Please call and schedule follow-up with Pulmonology (Dr. Mercado) in 5-7 days - Please discuss the spot found on your lung with him. You will need to eval uate this further as the spot can potentially turn into cancer. Diet: Regular Activity: Ad kevyn Followup: NONE,NONE [Primary Care Provider] - Arben Kim MD [ACTIVE - CAN ADMIT] - Matti Stern MD [ACTIVE - CAN ADMIT] - Aren Mercado MD [ACTIVE - CAN ADMIT] - Time spent managing pt's care (in minutes): 35
--- NOTE | 2022-12-19 19:00 | PN ---
Date of Progress Note: 12/19/2022 Subjective: There are no new complaints. Review of Systems: No chest pain, shortness of breath, orthopnea, cough, nausea, vomiting, diarrhea. No abdominal pain. No dysuria, polyuria, or urinary urgency. All other systems were reviewed and they were negative. Physical Examination: Vital Signs: Temperature is 97.9, pulse 71, breathing at 16, blood pressure 158/87, saturating 100%. General: Pleasant elderly male, in no apparent distress. Head and Neck: Pupils are equal, reactive to light. Intact eye movements. No JVD. No cervical lym phadenopathy. Neck is supple. Thyroid is not enlarged. Lungs: Clear to auscultation bilaterally. No rhonchi, wheezing, or crackles. No accessory muscle u se. Heart: Irregular. No extra sounds. Abdomen: Soft, nontender. Bowel sounds positive. No organomegaly. No masses or hernia. No rigidi ty or rebound. Extremities: No clubbing or cyanosis. Intact pulses. Skin: No rash. Neurologic: Alert, awake. No acute focal deficits appreciated. Investigations: BUN 13, creatinine 1.03. Troponin 103. Assessment And Recommendations: 1.Elevated troponin. This is probably demand. No chest pain. We will plan for outpatient exercise nuclear stress test. 2.Atrial fibrillation. Rate is controlled. Continue current medications with sotalol and Eliquis a nd we will re-evaluate in about 4 weeks in the office. If he does not convert to sinus rhythm, we will plan for electrical car dioversion. SR/MODL Voice ID: [id number] Report ID: [id number]
--- NOTE | 2022-12-21 07:55 | ECHO ---
HEIGHT: 5 ft 6 in WEIGHT: 180 lb 0 oz DATE OF STUDY: 12/18/[address]: Robin Alanis NP 2-DIMENSIONAL: YES M.MODE: YES DOPPLER: YES COLOR FLOW: YES TDS: PORTABLE: YES DEFINITY: BUBBLE STUDY: DIAGNOSIS: NEW ONSET ATRIAL FIBRILLATION CARDIAC HISTORY: CATHERIZATION: NO SURGERY: NO PROSTHETIC VALVE: NO PACEMAKER: NO MEASUREMENTS (cm) DIASTOLIC (NORMALS) SYSTOLIC (NORMALS) IVSd 1.1 (0.6-1.2) LA Diam 3.7 (1.9-4.0) LVEF 66% LVIDd 3.9 (3.5-5.7) LVIDs 2.5 (2.0-3.5) %FS 36% LVPWd 1.3 (0.6-1.2) Ao Diam 3.2 (2.0-3.7) 2 DIMENSIONAL ASSESSMENT: RIGHT ATRIUM: NORMAL LEFT ATRIUM: NORMAL RIGHT VENTRICLE: NORMAL LEFT VENTRICLE: NORMAL TRICUSPID VALVE: MILD TRICUSPID REGURGITATION MITRAL VALVE: TRACE MITRAL REGURGITATION PULMONIC VALVE: NORMAL AORTIC VALVE: NORMAL PERICARDIAL EFFUSION: NONE AORTIC ROOT: NORMAL LEFT VENTRICULAR WALL MOTION: NORMAL DOPPLER/COLOR FLOW: SEE BELOW COMMENTS: 1. NORMAL LEFT VENTRICULAR EJECTION FRACTION 60-65% 2. NORMAL WALL MOTION 3. ATRIAL FIBRILLATION 4. MILD TRICUSPID REGURGITATION 5. TRACE MITRAL REGURGITATION TECHNOLOGIST: BRIANA CAMPOS
--- NOTE | 2022-12-21 16:55 | EKG ---
Test Date: 2022-12-19 Test Time: 14:23:16 Gardener Florist: JOSE MEASUREMENT RESULTS: Intervals: Rate: 67 NM: 152 QRSD: 90 QT: 420 QTc: 443 [place]: P: 69 NM: 152 QRS: -79 T: 47 INTERPRETIVE STATEMENTS: Normal sinus rhythm Left axis deviation Possible Inferior infarct, age undetermined Abnormal ECG Compared to ECG 12/18/2022 00:34:14 Left-axis deviation now present Atrial flutter no longer present Ventricular premature complex(es) no longer present Right superior axis no longer present Myocardial infarct finding still present Electronically Signed On 12-21-22 16:53:27 SUPERVISOR SUNGLASSES by Arben Kim
== END 2022-12-19 15:00 | disposition home or self-care (01) | DRG 281 ==
LOC: ER 20:55 → ERHOLD 12-18 00:39 → 2ND 12-18 00:56 → OBSVTOIN 12-18 15:12
PROVIDERS: ADMIT Internal Medicine; ATTEND Internal Medicine
DX: I48.0 Paroxysmal atrial fibrillation (principal); I21.A1 Myocardial infarction type 2; I69.351 Hemiplegia and hemiparesis following cerebral infarction affecting right dominant side; I10 Essential (primary) hypertension; E78.5 Hyperlipidemia, unspecified; E86.0 Dehydration; E11.65 Type 2 diabetes mellitus with hyperglycemia; D72.829 Elevated white blood cell count, unspecified; T50.996A Underdosing of other drugs, medicaments and biological substances, initial encounter; R91.8 Other nonspecific abnormal finding of lung field; R77.8 Other specified abnormalities of plasma proteins; R31.29 Other microscopic hematuria; Z60.2 Problems related to living alone; Z56.0 Unemployment, unspecified; Z91.14 Patient's other noncompliance with medication regimen; Z79.82 Long term (current) use of aspirin; Z79.01 Long term (current) use of anticoagulants; Z79.84 Long term (current) use of oral hypoglycemic drugs; Z79.899 Other long term (current) drug therapy; Z20.822 Contact with and (suspected) exposure to COVID-19
CPT/HCPCS: 0240U; 36415; 71045; 74176; 80048; 80053; 80061; 80076; 80307; 81003; 82947; 83036; 83605; 83690; 83735; 83880; 84443; 84484; 85025; 87040; 87086; 87088; 93005; 93306; 96365; 96366; 96372; 96375; 99285; G0378; J1160; J1650; J1815; J2405; J3475; J7030; J7120; Q0162